=== PATIENT | male | born 1960 | race American Indian/Alaskan Native ===

== ENCOUNTER 2017-08-26 08:42 | Outpatient (CLI) | payer MEDICAID ==
[2017-08-26 09:08] LABS: Hematocrit 42.4 % (35.5-45.6); Hemoglobin 13.4 gm/dl (11.8-15.2); Mean Corpuscular HGB Conc 32 % (32-34); Mean Corpuscular Volume 80 fl (84-94); Platelet Count 170 K/mm3 (140-440); Red Blood Count 5.33 M/mm3 (3.65-5.03); Red Cell Distribution Width 14.7 % (13.2-15.2)
[2017-08-26 09:16] LABS: Mean Corpuscular Hemoglobin 25 pg (28-32)
[2017-08-26 09:35] LABS: Alanine Aminotransferase 36 units/L (7-56); BUN/Creatinine Ratio 12; Blood Urea Nitrogen 7 mg/dL (9-20); Chol/HDL Ratio 2.79 %; HDL Cholesterol 53 mg/dL (40-59); Hemolysis Index 31; LDL Cholesterol,Direct 84 mg/dL (50-130)
--- NOTE | 2017-08-26 09:40 | XRay Report ---
ROUTINE CHEST, TWO VIEWS: HISTORY: Followup pneumonia. The trachea, heart, mediastinal contour, lung valentine and bony thorax are unremarkable. IMPRESSION: Unremarkable chest x-ray. Bilateral infiltrates have resolved since 07/17/17.
[2017-08-26] MEDS ORDERED: PROVENTIL IH ONE (10:36)
== END 2017-08-26 08:43 | disposition home or self-care (01) ==
LOC: PF 08:42
PROVIDERS: ATTEND Internal Medicine
DX: J18.9 Pneumonia, unspecified organism (principal); I10 Essential (primary) hypertension; Z79.899 Other long term (current) drug therapy
CPT/HCPCS: 36415; 36600; 71046; 80053; 80061; 82803; 84436; 84443; 85027; 94060; 94640; 94726; 94729